=== PATIENT | male | born 1955 | race Caucasian/White ===

== ENCOUNTER 2017-10-08 08:32 | Emergency (ER) | payer OTHER ==
[~2017-10-08] VITALS: Ht 170.2 cm; Wt 72.6 kg
--- NOTE | 2017-10-08 09:36 | CT SCAN REPORT ---
EXAMINATION: CT HEAD WITHOUT CONTRAST CT CERVICAL SPINE WITHOUT CONTRAST CLINICAL INFORMATION: Fall with head strike. Laceration above left eyebrow. COMPARISON: Brain MRI 09/10/2017. TECHNIQUE: CT of the head and cervical spine were performed without intravenous contrast. Multiplanar reformats were rendered and reviewed. DLP: 1961 mGy-cm. FINDINGS: CT head: There is soft tissue contusion and subgaleal hematoma along the left frontal scalp extending into the supraorbital region. There is no underlying calvarial fracture. There is no intracranial hemorrhage or extra axial collection. There is no mass effect, midline shift, or CT evidence of acute large territory infarction. There are postoperative findings related to pterional craniotomy for reported treatment of glioblastoma. There is confluent hypoattenuation in the right parietal and temporal lobes which appears similar to the T2/FLAIR hyperintense signal identified on the prior brain MRI of 09/10/2017. There is trace amount of fluid in the right maxillary sinus. There is mild opacification of right mastoid air cells. There are atheromatous calcifications in the carotid siphons and intradural vertebral arteries. CT cervical spine: There is trace retrolisthesis of C4 on C5 with alignment otherwise maintained. The craniovertebral junction is intact. No cervical spine fracture is seen. There are multilevel degenerative changes with intervertebral disc height loss, endplate spurring, and uncovertebral and facet arthropathy. There are multilevel disc osteophyte complexes. The right-sided C2-C3 facets are ankylosed. There is severe left-sided neural foraminal stenosis at C6-C7. There is additional multilevel mild to moderate neural foraminal stenosis. There is no high-grade osseous encroachment on the spinal canal. The lung apices are clear. There are atheromatous calcifications in the carotid arteries. IMPRESSION: CT head: 1. Soft tissue contusion and subgaleal hematoma along the left frontal scalp extending into the supraorbital region. No calvarial fracture, extra-axial collection, or intracranial hemorrhage. 2. Right parietotemporal glioblastoma is not well evaluated on the current exam. Confluent hypoattenuation in this region appears similar compared to the prior MRI. Continued neurooncologic follow-up is recommended. CT cervical spine: 1. No cervical spine fracture or traumatic malalignment. 2. Multilevel degenerative spondylotic changes. Severe left neural foraminal stenosis at C6-C7.
--- NOTE | 2017-10-08 09:44 | ED MVC/FALL/TRAUMA COMPLAINT ---
History of Present Illness General Chief Complaint: Fall Stated Complaint: FALL/LAC Source: patient Exam Limitations: no limitations Vital Signs & Intake/Output Vital Signs & Intake/Output Vital Signs Date Time Temp Pulse Resp B/P B/P Pulse O2 O2 Flow FiO2 Mean Ox Delivery Rate 10/08 1035 98.2 65 20 152/84 99 Room Air 10/08 0835 98.1 64 20 160/80 100 Room Air Allergies Coded Allergies: tetanus and diphtheria toxoids (UNKNOWN 10/08/17) Reconcile Medications Dexamethasone 4 MG TABLET 0.5 TAB PO Q48 STEROID (Reported) Esomeprazole Magnesium (Nexium) 20 MG CAPSULE. 1 CAP PO DAILY GI (Reported) Levetiracetam 500 MG TABLET 1 TAB PO BID SEIZURES (Reported) Lorazepam 1 MG TABLET 1 TAB PO Q6-PRN PRN ANXIETY (Reported) Metoprolol Tartrate 50 MG TABLET 1 TAB PO BID HEART (Reported) Oxycodone HCl 5 MG TABLET 2 TAB PO Q4 HRS NEEDED PRN PAIN (Reported) Sodium Chloride 1 GRAM TABLET 2 TAB PO BID SUPPLEMENT (Reported) Triage Note: N 62 Y/O MALE MARTHA FROM HOME FOR MECHANICAL FALL. PT HAS HX OF BRAIN SX RECENTLY AND WAS JUST PLACED ON HOSPICE YESTERDAY. PER EMS PT RESIDES IN THE LIVING ROOM OF HIS HOUSE AND HAS A CALL CHILEL TO CALL FOR HELP AND PT DID NOT USE CALL [facility] THIS MORNING. PT WAS ATTEMPTING TO USE WALKER ACROSS A ONE STEP LIP FROM LIVING ROOM TO KITCHEN WHEN HE FELL. NO LOC BUT PT DID STRIKE HEAD SUSTAINING A LAC TO LT FRONTAL HEAD ABOVE EYE BROWS. PT ARRIVES A/0 X3, SLOW IN DELIVERY BUT PER EMS/FAMILY THAT I BASE LINE. VITALS COMPLETED AND PT AWAITING PROVIDER EVAL Triage Nurses Notes Reviewed? yes Onset: Abrupt Duration: day(s): (1), constant, continues in ED, getting worse Timing: single episode today Severity: moderate, severe Severity Numbers: 8 Injuries/Fall Location: head Method of Injury: fall Loss of Consciousness: no loss of consciousness No Modifying Factors: none Associated Symptoms: headache HPI: 62-year-old male past medical history hypertension, HYPERlipidemia, DM, brain tumor presents for evaluation after a fall. Patient is usually only walking with a walker and 2 people assisting him. He has to urinate during the night he got up and was walking across a house when he fell down a step hitting his head on the ground. He fell down one step. No loss of consciousness. No blood thinners. He reports pain in his bilateral hips and head. He just started on hospice yesterday. No chest pain shortness of breath dizziness lightheadedness before the fall. He denies any pain in his chest neck back or abdomen. No vomiting. No changes in vision. He is allergic to tetanus. (Antonio Croft) Past History Travel History Traveled to [place] past 21 day No Medical History Any Pertinent Medical History? see below for history Neurological: BRAIN TUMOR EENT: NONE Cardiovascular: hypertension, hyperlipidemia Respiratory: NONE Gastrointestinal: NONE Hepatic: NONE Renal: NONE Musculoskeletal: NONE Psychiatric: NONE Endocrine: diabetes Blood Disorders: NONE Cancer(s): GLIOBLASTOMA Surgical History Surgical History: BRAIN SURGERY Psychosocial History What is your primary language French Tobacco Use: Quit >30 days ago ETOH Use: denies use Illicit Drug Use: denies illicit drug use Family History Hx Contributory? No (Antonio Croft) Review of Systems Review of Systems Constitutional: Reports: no symptoms. Eyes: Reports: no symptoms. Ears, Nose, Throat, Mouth: Reports: no symptoms. Respiratory: Reports: no symptoms. Cardiovascular: Reports: no symptoms. Gastrointestinal/Abdominal: Reports: no symptoms. Genitourinary: Reports: no symptoms. Musculoskeletal: Reports: no symptoms. Skin: Reports: no symptoms. Neurological/Psychological: Reports: headache. All Other Systems: Reviewed and Negative (Antonio Croft) Physical Exam Physical Exam General Appearance: well developed/nourished, no apparent distress, alert, awake , lethargic Head: THERE IS A 2 CM LINEAR LACERATION AND AVULSION INJURY TO THE LEFT FOREHEAD JUST ABOVE THE LEFT EYEBROW.SMALL AMOUNT OF ACTIVE BLEEDING. nO FOREIGN BODY. tHERE IS SOME SURROUNDING SOFT TISSUE SWELLING. nO BRUISING. nO THOMPSON SIGNS OR RACCOON EYES NO OTHER SCALP HEMATOMAS OR LACERATIONS Eyes: Bilateral: normal appearance, PERRL, EOMI. Ears, Nose, Throat, Mouth: hearing grossly normal, moist mucous membrane Neck: normal inspection, supple, full range of motion Respiratory: normal breath sounds, chest non-tender, no respiratory distress, lungs clear Cardiovascular: regular rate/rhythm, normal peripheral pulses Peripheral Pulses: 2+ radial (R), 2+ radial (L) Gastrointestinal: soft, non-tender Back: normal inspection, normal range of motion, no vertebral tenderness Extremities: normal range of motion Neurologic/Psych: no motor/sensory deficits, awake, alert, oriented x 3 Skin: intact, normal color, warm/dry Core Measures ACS in differential dx? No CVA/TIA Diagnosis No Sepsis Present: No Sepsis Focused Exam Completed? No (Enzo DIAZ,Antonio) Progress Differential Diagnosis: aoritic dissection, C/T/L spine injury, ext injury, ICH, pelvis injury Diagnostic Imaging: Viewed by Me: CT Scan. Discussed w/RAD: CT Scan. Radiology Impression: PATIENT: NOEL BRIAN PRESENT AGE: 62 PATIENT ACCOUNT NO: [id number] : 53 LOCATION: [facility] ORDERING PHYSICIAN: Antonio DIAZ SERVICE DATE: 10/08/17 EXAM TYPE: CAT - CT CERV SPINE WO IV CONTRAST; CT HEAD WO IV CONTRAST EXAMINATION: CT HEAD WITHOUT CONTRAST CT CERVICAL SPINE WITHOUT CONTRAST CLINICAL INFORMATION: Fall with head strike. Laceration above left eyebrow. COMPARISON: Brain MRI 2017. TECHNIQUE: CT of the head and cervical spine were performed without intravenous contrast. Multiplanar reformats were rendered and reviewed. DLP: 1961 mGy-cm. FINDINGS: CT head: There is soft tissue contusion and subgaleal hematoma along the left frontal scalp extending into the supraorbital region. There is no underlying calvarial fracture. There is no intracranial hemorrhage or extra axial collection. There is no mass effect, midline shift, or CT evidence of acute large territory infarction. There are postoperative findings related to pterional craniotomy for reported treatment of glioblastoma. There is confluent hypoattenuation in the right parietal and temporal lobes which appears similar to the T2/FLAIR hyperintense signal identified on the prior brain MRI of 09/10/2017. There is trace amount of fluid in the right maxillary sinus. There is mild opacification of right mastoid air cells. There are atheromatous calcifications in the carotid siphons and intradural vertebral arteries. CT cervical spine: There is trace retrolisthesis of C4 on C5 with alignment otherwise maintained. The craniovertebral junction is intact. No cervical spine fracture is seen. There are multilevel degenerative changes with intervertebral disc height loss, endplate spurring, and uncovertebral and facet arthropathy. There are multilevel disc osteophyte complexes. The right-sided C2-C3 facets are ankylosed. There is severe left-sided neural foraminal stenosis at C6-C7. There is additional multilevel mild to moderate neural foraminal stenosis. There is no high-grade osseous encroachment on the spinal canal. The lung apices are clear. There are atheromatous calcifications in the carotid arteries. IMPRESSION: CT head: 1. Soft tissue contusion and subgaleal hematoma along the left frontal scalp extending into the supraorbital region. No calvarial fracture, extra-axial collection, or intracranial hemorrhage. 2. Right parietotemporal glioblastoma is not well evaluated on the current exam. Confluent hypoattenuation in this region appears similar compared to the prior MRI. Continued neurooncologic follow-up is recommended. CT cervical spine: 1. No cervical spine fracture or traumatic malalignment. 2. Multilevel degenerative spondylotic changes. Severe left neural foraminal stenosis at C6-C7. DICTATED BY: Brant Pal MD DATE/ TIME DICTATED:10/08/17917 RISK CONTROL FIELD REPRESENTATIVE:LEANDRA DATE/TIME TRANSCRIBED: 10/08/17917 CONFIDENTIAL, DO NOT COPY WITHOUT APPROPRIATE AUTHORIZATION. < Electronically signed in Other Vendor System> SIGNED BY: Brant Pal MD 10/08/17 0936, PATIENT: NOEL BRIAN PRESENT AGE : 62 PATIENT ACCOUNT NO: [id number] : 53 LOCATION: [facility] ORDERING PHYSICIAN: Antonio DIAZ SERVICE DATE: 10/08/17 EXAM TYPE: RAD - XRY-AP PELVIS; XRY-HIP 2-3 VIEWS, LEFT; XRY-HIP 2-3 VIEWS, RIGHT EXAMINATION: XR BILATERAL HIPS WITH AP PELVIS CLINICAL INFORMATION: Left hip pain after fall. COMPARISON: None TECHNIQUE: AP view of the pelvis and 2 views of each hip were obtained. FINDINGS: There is no definite fracture involving the left hip. No femoral fracture is seen. The left hip appears internally rotated causing some foreshortening of the femoral neck. There is no dislocation. There are mild degenerative changes at both hip joints without joint space loss. There is chronic appearing bowing deformity of the right mid femoral diaphysis. There are mild degenerative changes at the pubic symphysis and at the sacroiliac joints. Degenerative changes are also seen in the lower lumbar spine. The soft tissues are within normal limits. IMPRESSION: No acute fracture in the pelvis or at the left hip. Degenerative changes are seen at both hip joints but without significant joint space loss. DICTATED BY: Brant Pal MD DATE/TIME DICTATED :10/08/171138 RISK CONTROL FIELD REPRESENTATIVE:LEANDRA DATE/TIME TRANSCRIBED:10/08/171138 CONFIDENTIAL, DO NOT COPY WITHOUT APPROPRIATE AUTHORIZATION. < Electronically signed in Other Vendor System> SIGNED BY: Brant Pal MD 10/08/17 1147 (Antonoi Croft) Plan of Care: Orders Procedure Date/time Status URINE DRUG SCREEN FOR ER ONLY 10/08 1138 Active URINALYSIS 10/08 1138 Active PSYCHIATRIC CONSULT 10/08 113 Active Laboratory Tests 10/08/17 1122: Serum Alcohol Cancelled 10/08/17 1122: CBC w Diff Cancelled, WBC Cancelled, RBC Cancelled, Hgb Cancelled, Hct Cancelled , MCV Cancelled, MCH Cancelled, MCHC Cancelled, RDW Cancelled, Plt Count Cancelled, MPV Cancelled, Methadone Screen Cancelled, Barbiturate Screen Cancelled, Ur Phencyclidine Scrn Cancelled, Amphetamines Screen Cancelled, U Benzodiazepines Scrn Cancelled, Urine Cocaine Screen Cancelled, Urine Cannabis Screen Cancelled, Urine Color Cancelled, Urine Clarity Cancelled, Urine pH Cancelled, Ur Specific [place] Cancelled, Urine Protein Cancelled, Urine Ketones Cancelled, Urine Nitrite Cancelled, Urine Bilirubin Cancelled, Urine Urobilinogen Cancelled, Ur Leukocyte Esterase Cancelled, Ur Microscopic Cancelled, Urine Hemoglobin Cancelled, Urine Glucose Cancelled Patient seen and evaluated. A mechanical fall today and suffered a laceration above the left eyebrow. This was cleaned with Betadine and sterile wateR. 3 5-0 nylon simple sutures used to approximate the wound. Sterile dressing applied. Discussed wound care procedures in detail. REMOVE SUTURES IN 7 days. Discussion had with patient and family and case management regarding patient's home care situation. At this time the family is wishing to take him home they will discuss the situation with the hospice nurse karie about whether or not he needs a higher level of care. Case discussed with Dr. Chilel he agrees. (Enzo DIAZ,Antonio) Comments: 10/08/2017 11:57:53 AM I was asked to see Oskar regarding possible incompetence. After rather lengthy discussion with him I find him to be competent to make medical decisions although he often simply will not decide. He is aware of where he is, the year and current events. He is also capable of acknowledging choices in decision making but as far as his immediate care plan is concerned he cannot state whether or not he wishes to return home or be hospitalized. I discussed this with his family including his POA and they will take him home. Hospice nurse will be in later today to evaluate him. (Ranjana NIELSEN,Durga Castro) Departure Departure Disposition: HOME OR SELF CARE Condition: Stable Clinical Impression Primary Impression: Head injury due to trauma Qualifiers: Encounter type: initial encounter Qualified Code: S09.90XA - Unspecified injury of head, initial encounter Secondary Impressions: Laceration Referrals: Anju NIELSEN,Toan Roberts (PCP/Family) Additional Instructions: KEEP THE LACERATION CLEAN AND DRY. CHANGE DRESSING ONCE DAILY. LOOK OUT FOR SIGNS OF INFECTION SURCH REDNESS SWELLING DISCHARGE OR PAIN. FOLLOW UP WITH HOSPICE NURSE TODAY SCHEDULED. Departure Forms: Customer Survey General Discharge Information (Antonio Croft) PA/COMPUTER NUMERICAL CONTROL OPERATOR Co-Sign Statement Statement: ED Attending supervision documentation- [X] I saw and evaluated the patient. I have also reviewed all the pertinent lab results and diagnostic results. I agree with the findings and the plan of care as documented in the PA's/COMPUTER NUMERICAL CONTROL OPERATOR's documentation. Patient presents for injury sustained status post fall. Physical examination reveals soft tissue swelling and laceration over the left eye with an otherwise nonfocal neurologic examination. [] I have reviewed the ED Record and agree with the PA's/COMPUTER NUMERICAL CONTROL OPERATOR's documentation. [] Additions or exceptions (if any) to the PAs/COMPUTER NUMERICAL CONTROL OPERATOR's note and plan are summarized below: [] (Ranjana NIELSEN,Durga Castro) Procedures Laceration/Wound Repair Laceration/Wound Repair: Wound Location: head Wound's Depth, Shape: irregular, superficial, subcutaneous Wound Length (cm): 2 Wound Explored: clean, irrigated extensively Irrigated w/ Saline (ccs): 300 Betadine Prep? Yes Anesthesia: 1% lidocaine Volume Anesthetic (ccs): 5 Wound Debrided: minimal Wound Repaired With: sutures Suture Size/Type: 5:0, nylon Number of Sutures: 3 Layer Closure? No Tetanus Status: not up to date (ALLERGIC ) (Enzo DIAZAntonio)
[2017-10-08 10:35] VITALS: BP 152/84
[2017-10-08] MEDS ORDERED: SODIUM CHLORIDE1 G2 PO (11:23)
[2017-10-08] MEDS ORDERED: LORAZEPAM1 M1 PO (11:24)
[2017-10-08] MEDS ORDERED: OXYCODONE HCL5 M1 PO (11:25)
[2017-10-08] MEDS ORDERED: LEVETIRACETAM500 M2 PO (11:25)
[2017-10-08] MEDS ORDERED: METOPROLOL TART50 M1 PO (11:26)
[2017-10-08] MEDS ORDERED: DEXAMETHASONE4 M1 PO (11:26)
[2017-10-08] MEDS ORDERED: NEXIUM20 M1 PO (11:27)
--- NOTE | 2017-10-08 11:47 | RADIOLOGY REPORT ---
EXAMINATION: XR BILATERAL HIPS WITH AP PELVIS CLINICAL INFORMATION: Left hip pain after fall. COMPARISON: None TECHNIQUE: AP view of the pelvis and 2 views of each hip were obtained. FINDINGS: There is no definite fracture involving the left hip. No femoral fracture is seen. The left hip appears internally rotated causing some foreshortening of the femoral neck. There is no dislocation. There are mild degenerative changes at both hip joints without joint space loss. There is chronic appearing bowing deformity of the right mid femoral diaphysis. There are mild degenerative changes at the pubic symphysis and at the sacroiliac joints. Degenerative changes are also seen in the lower lumbar spine. The soft tissues are within normal limits. IMPRESSION: No acute fracture in the pelvis or at the left hip. Degenerative changes are seen at both hip joints but without significant joint space loss.
== END 2017-10-08 13:05 ==
LOC: ERH 08:32
DX: S01.01XA Laceration without foreign body of scalp, initial encounter (principal); S09.90XA Unspecified injury of head, initial encounter; W19.XXXA Unspecified fall, initial encounter; Y92.9 Unspecified place or not applicable; Y93.9 Activity, unspecified
CPT/HCPCS: 72170; 73502-LT; 73502-RT; 80307; G0480